=== PATIENT | female | born 1965 | race Hispanic/Latino ===

== ENCOUNTER → 2016-12-27 | Outpatient (CLI) | payer OTHER ==
--- NOTE | 2016-12-29 08:30 | MAM ---
EXAM DESCRIPTION: 3D Screening BILATERAL : Digital Mammography. CLINICAL HISTORY: 51 years Female SCREENING no complaints. No prior history. Postmenopausal. No HRT. COMPARISON: 2-D digital screening bilateral study 04/05/2013.. No prior reports available. TECHNIQUE: Bilateral CC and MLO projection full-field images, 3-D tomosynthesis digital mammographic technique. Also bilateral synthesized CC/ MLO full-field images. CAD not utilized. FINDINGS: The breast parenchymal density pattern is: Scattered areas of fibroglandular density. No skin thickening or nipple retraction multiple bilateral axillary lymph nodes. Significant increase in size and number since the prior study. Bilateral solitary microcalcifications. Coarse calcification posterior right breast. No focal asymmetry , and no suspicious microcalcifications bilaterally. IMPRESSION: BI-RADS CATEGORY: 0 - INCOMPLETE- Need additional imaging evaluation. FOLLOW-UP: Recall for additional imagin-D bilateral breast tomosynthesis full field LM images. Targeted bilateral breast ultrasound of the axillary regions. Written communication concerning the IMPRESSION and Follow-up, will be mailed to the patient and referring health care provider. Electronically signed by: Socrates Pelaez MD 12/29/2016 8:28 AM CDT
== END | disposition home or self-care (01) ==
LOC: MAMMO 08:54
PROVIDERS: ATTEND Family Medicine
DX: Z12.31 Encounter for screening mammogram for malignant neoplasm of breast (principal)
CPT/HCPCS: 77063; G0202

== ENCOUNTER → 2017-01-17 | Outpatient (CLI) | payer OTHER ==
--- NOTE | 2017-01-17 16:55 | MAM ---
EXAM DESCRIPTION: 3D Diagnostic, Bilateral: Digital Mammography CLINICAL HISTORY: 51 yearsFemaleABNORMAL MAMMOGRAM . Multiple bilateral lymph nodes in the axilla and Axillary tail.. COMPARISON: 3-D tomosynthesis bilateral digital screening 04/29/2016. Report from prior examination also reviewed. TECHNIQUE: Bilateral LM projection full-field images, 3-D tomosynthesis digital mammographic technique. Also bilateral synthesized LM full-field images. CAD not utilized. FINDINGS: The breast parenchymal density pattern is: Scattered areas of fibroglandular density. No skin thickening or nipple retraction multiple bilateral prominent lymph nodes in the axilla and axillary tails of both breasts. Well-defined ruiz and all the lymph nodes bilaterally demonstrate fatty humza. Radiolucent artifact noted around the lymph nodes bilaterally. Solitary microcalcifications. No focal, stellate mass or density, focal asymmetry , and no suspicious microcalcifications bilaterally. ULTRASOUND: Multiple bilateral lymph nodes in the axilla. Largest lymph node in the left axilla long axis, 2.1 cm. 1.0 cm long axis lymph node is the most prominent one seen on the right. Vascular humza bilaterally. No discrete solid mass or cyst. No reactive appearing lymph nodes. No skin thickening, large calcification, or parenchymal edema. IMPRESSION: BI-RADS CATEGORY: 2 - BENIGN FINDINGS. FOLLOW UP: Routine digital bilateral screening, one year interval from December 2016. Written communication explaining the IMPRESSION and follow-up, will be mailed to the patient and referring health care provider. According to the [employer], yearly mammograms are recommended starting at age 40 and continuing as long as a woman is in good health. Any breast change noted on a breast self-exam should be reported promptly to the patient's healthcare provider. Breast MRI is recommended for women with an approximately 20-25% or greater lifetime risk of breast cancer, including women with a strong family history of breast or ovarian cancer and women who have been treated for Hodgkin's disease. A negative mammographic report should not delay tissue diagnosis in patients with significant clinical history or physical findings. Extremely dense breast tissue limits the sensitivity of digital mammography. Electronically signed by: Socrates Pelaez MD 01/17/2017 4:54 PM MONONITROTOLUENE OPERATOR
--- NOTE | 2017-01-17 16:59 | US ---
EXAM DESCRIPTION: Breast,Bilateral: Ultrasound CLINICAL HISTORY: 51 yearsFemaleABNORMAL MAMMOGRAM COMPARISON: Digital 3-D tomosynthesis diagnostic bilateral breast on this visit. TECHNIQUE: Transcutaneous scanning of the bilateral breasts axillary tail and axilla, utilizing two-dimensional and Doppler modes. Scanning performed by the driver/merchandiser and Dr. Pelaez. FINDINGS: Multiple bilateral lymph nodes in the axilla. Largest lymph node in the left axilla long axis, 2.1 cm. 1.0 cm long axis lymph node is the most prominent one seen on the right. Vascular humza bilaterally. No discrete solid mass or cyst. No reactive appearing lymph nodes. No skin thickening, large calcification, or parenchymal edema. IMPRESSION: 1. Bi-Rads Category 2: Benign. 2. Please refer to bilateral 3-D tomosynthesis diagnostic examination and report on this visit. The FINDINGS and the follow-up plan were reviewed in person with the patient after the examination. Written communication explaining the IMPRESSION and follow-up will be mailed to the patient and referring care provider. Electronically signed by: Socrates Pelaez MD 01/17/2017 4:58 PM TOW TRUCK OPERATOR
== END | disposition home or self-care (01) ==
LOC: MAMMO 15:59
PROVIDERS: ATTEND Family Medicine
DX: R92.8 Other abnormal and inconclusive findings on diagnostic imaging of breast (principal)
CPT/HCPCS: 76641; G0204; G0279

== ENCOUNTER → 2017-04-26 | Outpatient (CLI) | payer SELFPAY | LOC: LAB.O 08:22 | DX: I10 Essential (primary) hypertension (principal) ==

== ENCOUNTER → 2017-05-17 | Outpatient (CLI) | payer OTHER | LOC: YCFC.O 08:47 | DX: E78.2 Mixed hyperlipidemia (principal); I10 Essential (primary) hypertension; E11.9 Type 2 diabetes mellitus without complications ==

== ENCOUNTER → 2017-11-22 | Outpatient (CLI) | payer OTHER | LOC: YCFC.O 08:27 | PROVIDERS: ATTEND Family Medicine | DX: E78.2 Mixed hyperlipidemia (principal); E11.9 Type 2 diabetes mellitus without complications; R53.83 Other fatigue ==

== ENCOUNTER → 2018-02-07 | Outpatient (CLI) | payer OTHER | LOC: LAB.O 12:50 | PROVIDERS: ATTEND Family Medicine | DX: D64.9 Anemia, unspecified (principal) ==

== ENCOUNTER → 2018-05-02 | Outpatient (CLI) | payer OTHER | LOC: YCFC.O 12:19 | PROVIDERS: ATTEND Family Medicine | DX: D64.9 Anemia, unspecified (principal); E11.9 Type 2 diabetes mellitus without complications ==

== ENCOUNTER → 2018-10-24 | Outpatient (CLI) | payer OTHER | LOC: LAB.O 10:29 | PROVIDERS: ATTEND Family Medicine | DX: E11.9 Type 2 diabetes mellitus without complications (principal); D64.9 Anemia, unspecified ==

== ENCOUNTER → 2019-07-17 | Outpatient (CLI) | payer OTHER | LOC: YCFC.O 10:34 | PROVIDERS: ATTEND Family Medicine | DX: E11.9 Type 2 diabetes mellitus without complications (principal); D64.9 Anemia, unspecified ==

== ENCOUNTER → 2019-09-30 | Outpatient (CLI) | payer OTHER | LOC: YCFC.O 15:13 | PROVIDERS: ATTEND Nurse Practitioner | DX: Z03.818 Encounter for observation for suspected exposure to other biological agents ruled out (principal); Z20.828 Contact with and (suspected) exposure to other viral communicable diseases ==

== ENCOUNTER → 2020-01-29 | Outpatient (CLI) | payer SELFPAY | LOC: YCFC.O 07:54 | PROVIDERS: ATTEND Family Medicine | DX: E11.9 Type 2 diabetes mellitus without complications (principal); I10 Essential (primary) hypertension; E78.5 Hyperlipidemia, unspecified ==